=== PATIENT | female | born 1950 | race Caucasian/White ===

== ENCOUNTER 2017-06-21 06:15 | Day surgery (SDC) | payer BC ==
[~2017-06-21] VITALS: Ht 152.4 cm; Wt 60.0 kg
[2017-06-21] VITALS (12 sets, daily range): BP systolic 102–126; BP diastolic 56–65; PULSE 80–94; RESP 14–20; Ht 152.4 cm; Wt 60.0 kg
--- NOTE | 2017-06-21 06:50 | HPN ---
Date/Time of Note Date/Time of Note DATE: 06/21/17 TIME: 06:49 Interval H&P Admission Note Pt. seen H&P reviewed: No system changes RICHARD SOTOMAYOR PA-C Jun 21, 2017 06:50
[2017-06-21] MEDS ORDERED: EPHEDrine SULFATE 50 MG/5 ML SYG ONE (07:00)
[2017-06-21] MEDS ORDERED: ALBU18HF INHALATION (07:06)
[2017-06-21] MEDS ORDERED: FLUT100B INHALATION (07:07)
[2017-06-21] MEDS ORDERED: ATOR20TA38 PO (07:07)
[2017-06-21] MEDS ORDERED: HYDR200T39 PO (07:07)
[2017-06-21] MEDS ORDERED: FAMO40TA52 PO (07:08)
[2017-06-21] MEDS ORDERED: PRED5TAB PO (07:08)
[2017-06-21] MEDS ORDERED: LEFL20TA18 PO (07:08)
[2017-06-21] MEDS ORDERED: LORA10TA3 PO (07:09)
[2017-06-21] MEDS ORDERED: OXYC-279 PO (07:09)
[2017-06-21] MEDS ORDERED: LABETALOL HCL 20MG INJ IV PRN (07:30)
[2017-06-21] MEDS ORDERED: ONDANSETRON 4 MG INJ IV PRN ×2 (07:30→10:30)
[2017-06-21] MEDS ORDERED: HYDROmorphONE (0.2 MG/ML) 10ML SYG IV PRN ×2 (07:30)
[2017-06-21] MEDS ORDERED: DIPHENHYDRAMINE 50 MG INJ IV PRN (07:30)
[2017-06-21] MEDS ORDERED: FENTAnyl 50 MCG/ML VIAL IV PRN (07:30)
[2017-06-21] MEDS ORDERED: CEFAZOLIN 2 GM/50 ML (PMX) 50 ML IVPB SCH (07:30)
[2017-06-21] MEDS ORDERED: PROCHLORPERAZINE 10 MG INJ IV PRN (07:30)
[2017-06-21] MEDS ORDERED: hydrALAzine 20 MG INJ IV PRN (07:30)
[2017-06-21] MEDS ORDERED: MEPERIDINE 25 MG INJ IV PRN (07:30)
[2017-06-21] MEDS ORDERED: OXYCODONE/ACETAMINOPHEN (5/325) TAB PO PRN ×2 (07:30)
[2017-06-21] MEDS ORDERED: POLYMYXIN/BACITRACIN 1L IRRIG ONE (07:52)
[2017-06-21] MEDS ORDERED: BUPIVACAINE 0.5% (SDV) 30 ML INJ ONE (08:00)
[2017-06-21] MEDS ORDERED: LIDOCAINE 1% (MPF) 30 ML INJ ONE (08:00)
--- NOTE | 2017-06-21 08:09 | RADRPT ---
PROCEDURE: XR Chest. CLINICAL INDICATION: Preoperative study TECHNIQUE: Single AP view of the chest were obtained COMPARISON: None FINDINGS: The heart and mediastinum are within normal limits. The pulmonary vasculature are unremarkable. The aorta demonstrates atherosclerotic calcifications. There is elevation of the right hemidiaphragm. T here is no lung consolidation, pleural effusion or pneumothorax. Degenerative changes are seen with in the thoracic spine. There is no acute osseous abnormality. IMPRESSION: No acute disease. RPTAT: AA .Sally Ohara MD, Date Time Electronically viewed and signed by .Sally Ohara MD, on 06/21/2017 08:09 .Ambreen/
[2017-06-21] MEDS ORDERED: MIDAZOLAM 1 MG/ML 2 ML INJ ONE (08:37)
[2017-06-21] MEDS ORDERED: FENTAnyl 50 MCG/ML VIAL ONE (08:37)
[2017-06-21] MEDS ORDERED: LIDOCAINE 2% (SDV) 5 ML INJ ONE (08:37)
[2017-06-21] MEDS ORDERED: PROPOFOL 20 ML ONE (08:37)
[2017-06-21] MEDS ORDERED: CEFAZOLIN 1 GM INJ ONE (09:35)
[2017-06-21] MEDS ORDERED: ONDANSETRON 4 MG INJ ONE (09:36)
[2017-06-21] MEDS ORDERED: METOCLOPRAMIDE 10 MG INJ ONE (09:36)
[2017-06-21] MEDS ORDERED: DEXAMETHASONE 4 MG/ML 1 ML INJ ONE (09:36)
[2017-06-21] MEDS ORDERED: PHENYLephrine (100 MCG/ML) 5ML SYG ONE (09:41)
[2017-06-21] MEDS ORDERED: KETOROLAC 30 MG INJ ONE (10:07)
--- NOTE | 2017-06-21 10:28 | SIPON ---
Date/Time of Note Date/Time of Note DATE: 06/21/17 TIME: 10:27 Operative Report Preoperative Diagnosis Symptomatic hardware right femur Postoperative Diagnosis same Operation/Procedure Performed Removal of hardware/screw right femur Surgeon see signature line preschool assistant director none Anesthesia: general Estimated blood loss: 0 - 10 ml's Transfusion Required none Specimen none Grafts/Implants none Complications none JEFFERY CHAVEZ Jun 21, 2017 10:28
--- NOTE | 2017-06-21 10:28 | SIPON ---
Date/Time of Note Date/Time of Note DATE: 06/21/17 TIME: 10:27 Operative Report Preoperative Diagnosis Symptomatic hardware right femur Postoperative Diagnosis same Operation/Procedure Performed Removal of hardware/screw right femur Surgeon see signature line medical assistant per diem none Anesthesia: general Estimated blood loss: 0 - 10 ml's Transfusion Required none Specimen none Grafts/Implants none Complications none JEFFERY CHAVEZ Jun 21, 2017 10:28
[2017-06-21] MEDS ORDERED: ACETAMINOPHEN 1000MG/100ML IV 100 ML IVPB SCH (10:30)
[2017-06-21] MEDS ORDERED: HYDROCODONE/APAP (5/325) TAB PO PRN (10:30)
[2017-06-21] MEDS ORDERED: HYDROCODONE/APAP (10/325) TAB PO PRN (10:30)
--- NOTE | 2017-06-21 17:51 | OPR ---
Date/Time of Note Date/Time of Note DATE: 06/21/17 TIME: 17:48 Operative Report Procedure Date: Jun 21, 2017 Preoperative Diagnosis prominent hardware right femur Postoperative Diagnosis same Operation/Procedure Performed removal of hardware right femur Surgeon see signature line Business Operations Consultant none Anesthesia Type: general Estimated Blood Loss: 0 - 10 ml's Transfusion none Specimen none Grafts/Implants none Tubes/Drains none Complications none Pt Condition Post Procedure: stable Indications The patient has painful symptomatic hardware at the distal end of the femur Procedure Description Patient was placed supine on the operating room table. The right lower extremity was prepped and draped in usual manner. A prominent screw at the distal end of the right femur was palpated laterally. Local anesthesia was administered in this area using lidocaine and Marcaine. 1.5 cm incision was made on the lateral aspect of the distal femur. The screw head was identified and using the [employer] and nephew screwdriver, the distal locking screw was removed. A second distal locking screw was tested with a screwdriver and found to be firmly fixed. The remainder of the hardware was securely fixed and was left alone. The wound was irrigated and closed in layers using #2-0 Vicryl for subcutaneous tissue and 3-0 Monocryl for the skin. A sterile dressing was applied and the patient transferred to the recovery room in stable condition. JEFFERY CHAVEZ Jun 21, 2017 17:51
--- NOTE | 2017-06-21 22:43 | RADRPT ---
Vent Rate: 81 bpm RR Interval: 0 msec [place] Interval: 144 msec QRS Duration: 68 msec QT Interval: 390 msec QTC Interval: 453 msec P-R-T [place]: 56 - 43 - 35 degrees Normal sinus rhythm Normal ECG Electronically Signed By: Gerhard Leone [id number]
--- NOTE | 2017-06-21 22:43 | RADRPT ---
Vent Rate: 81 bpm RR Interval: 0 msec [place] Interval: 144 msec QRS Duration: 68 msec QT Interval: 390 msec QTC Interval: 453 msec P-R-T [place]: 56 - 43 - 35 degrees Normal sinus rhythm Normal ECG Electronically Signed By: Gerhard Leone [id number]
[2017-06-22] MEDS ORDERED: INFLUENZA VIRUS VACCINE 0.5 ML (DISPENSING) IM* ONE (10:00)
== END 2017-06-21 12:20 | disposition home or self-care (01) ==
LOC: SDS 06:15 → EDSEX 06:15 → SDS 06:20
PROVIDERS: ATTEND Orthopaedic Surgery
DX: Z47.2 Encounter for removal of internal fixation device (principal); S72.21XD Displaced subtrochanteric fracture of right femur, subsequent encounter for closed fracture with routine healing; X58.XXXD Exposure to other specified factors, subsequent encounter; E78.5 Hyperlipidemia, unspecified; M06.9 Rheumatoid arthritis, unspecified; J44.9 Chronic obstructive pulmonary disease, unspecified
CPT/HCPCS: 20680; 71010; 80053; 85025; 85610; 85730; 88300; 93005; J0131; J0690; J1100; J1885; J2250; J2370; J2405; J2765; J3010; Z7512; Z7610

== ENCOUNTER 2017-10-25 08:32 | Day surgery (SDC) | END 2017-10-25 15:05 | disposition home or self-care (01) ==